=== PATIENT | female | born 1960 | race Caucasian/White ===

== ENCOUNTER 2021-04-22 09:43 | Outpatient (CLI) | payer BC | END 2021-04-22 09:44 | disposition home or self-care (01) | LOC: SCSMRI 09:43 | PROVIDERS: ATTEND Orthopaedic Surgery | DX: M25.561 Pain in right knee (principal); S83.241A Other tear of medial meniscus, current injury, right knee, initial encounter; M84.461A Pathological fracture, right tibia, initial encounter for fracture; M71.21 Synovial cyst of popliteal space [Baker], right knee; M25.461 Effusion, right knee ==